=== PATIENT | male | born 1980 | race African-American/Black ===

== ENCOUNTER 2021-11-12 12:51 | Emergency (ER) | payer MEDICAID ==
[~2021-11-12] VITALS: Ht 185.4 cm; Wt 131.0 kg
[2021-11-12] MEDS ORDERED: KETOROLAC 60MG/2ML VIAL IM ONE (15:30)
[2021-11-12] MEDS ORDERED: IBUP-2028 MT (16:46)
[2021-11-12 17:15] VITALS: BP 148/78
== END 2021-11-12 17:28 | disposition home or self-care (01) ==
LOC: ER 12:51
DX: S09.90XA Unspecified injury of head, initial encounter (principal); M54.2 Cervicalgia; Z98.890 Other specified postprocedural states; V49.40XA Driver injured in collision with unspecified motor vehicles in traffic accident, initial encounter; Y93.89 Activity, other specified; Y92.89 Other specified places as the place of occurrence of the external cause; Y99.8 Other external cause status
CPT/HCPCS: 70450; 93005; 96372; 99284; J1885